=== PATIENT | female | born 1945 | race Caucasian/White ===

== ENCOUNTER 2020-01-31 10:23 | Day surgery (SDC) | payer MEDICARE, BC ==
[2020-01-28 12:42] LABS: BASOPHILS % (AUTO) 1 % (0-1); EOSINOPHILS % (AUTO) 2 % (1-7); LYMPHOCYTES % (AUTO) 24 % (22-44); MEAN CORPUSCULAR HEMOGLOBIN 27.2 pg (27.0-34.8); MEAN PLATELET VOLUME 8.4 fL (7.4-10.4); MONOCYTES % (AUTO) 7 % (2-9); NEUTROPHILS % (AUTO) 67 % (42-75); PLATELET COUNT 317 x10^3/uL (130-400); RED BLOOD COUNT 5.22 x10^6/uL (3.82-5.3); RED CELL DISTRIBUTION WIDTH 14.4 % (9.6-15.2)
[2020-01-28 12:44] LABS: MD NO
[2020-01-28 12:49] LABS: INTERNATIONAL NORMALIZED RATIO 0.98 (0.93-1.1); PROTHROMBIN TIME 10.4 Seconds (9.6-11.5)
[2020-01-28 12:51] LABS: ALANINE AMINOTRANSFERASE 28 U/L (12-78); ALBUMIN 3.8 g/dL (3.4-5.0); ANION GAP 6 mmol/L (5-15); CALCIUM 9.5 mg/dL (8.5-10.1); CHLORIDE 108 mmol/L (98-107); CREATININE 0.82 mg/dL (0.55-1.02)
[2020-01-28 12:53] LABS: ALKALINE PHOSPHATASE 128 U/L (45-117); BILIRUBIN,TOTAL 0.6 mg/dL (0.2-1.0); TOTAL PROTEIN 7.3 g/dL (6.4-8.2)
[~2020-01-31] VITALS: Ht 170.2 cm; Wt 85.0 kg
[~2020-01-31 10:23] MED LIST: GINGER PO; TUMERIC PO; [UNRECOGNIZED DRUG - OTHER] PO; calcium PO; magnesium PO; multivitamin PO; super B complex PO
[2020-01-31] MEDS ORDERED: FENTANYL PF 250 MCG/5ML ONE ×2 (10:51→13:33)
[2020-01-31] MEDS ORDERED: ROCURONIUM 10MG/ML,5ML ONE (10:53)
[2020-01-31] MEDS ORDERED: GLYCOPYRROLATE 0.2MG/1ML, 5ML ONE (10:53)
[2020-01-31] MEDS ORDERED: CEFAZOLIN 1,000 MG ONE (10:53)
[2020-01-31] MEDS ORDERED: DEXAMETHASONE 4 MG/ML, 1ML ONE (10:53)
[2020-01-31] MEDS ORDERED: NEOSTIGMINE 1 MG/ML, 10ML ONE (10:53)
[2020-01-31] MEDS ORDERED: ONDANSETRON 2MG/ML, 2ML ONE (10:53)
[2020-01-31] MEDS ORDERED: PROPOFOL 10 MG/ML, 20ML ONE (10:53)
[2020-01-31 10:58] VITALS: BP 139/88
[2020-01-31] MEDS ORDERED: CEFOTETAN PMX 2GM/50ML 50 ML IVPB ONE (11:00)
[2020-01-31] MEDS ORDERED: FLU VACCINE PER PHARMACY IM ONE (11:00)
[2020-01-31] MEDS ORDERED: LACTATED RINGERS 1,000 ML IV SCH (11:00)
[2020-01-31] MEDS ORDERED: CHLORHEXIDINE 15 ML UDC MM ONE (11:00)
[2020-01-31] MEDS ORDERED: HEPARIN 1,000 UNITS/ML, 10ML ONE (11:54)
[2020-01-31] MEDS ORDERED: BUPIVACAINE/PF 0.25% ONE (11:54)
[2020-01-31] MEDS ORDERED: INDOCYANINE GREEN 25 MG VIAL ONE (11:54)
[2020-01-31] MEDS ORDERED: EPINEPHRINE 1 MG/ML, 1ML ONE (11:54)
[2020-01-31] MEDS ORDERED: morphine SULFATE 10 MG/ML, 1ML IVPush PRN (12:30)
[2020-01-31] MEDS ORDERED: OXYcodone 5 MG/5 ML ORAL.SOL UDC PO PRN (12:30)
[2020-01-31] MEDS ORDERED: PROMETHAZINE 25 MG/ML, 1ML IVPush PRN (12:30)
[2020-01-31] MEDS ORDERED: ACETAMINOPHEN 325 MG TABLET PO PRN (12:30)
[2020-01-31] MEDS ORDERED: hydrALAzine 20 MG/ML, 1ML IV PRN (12:30)
[2020-01-31] MEDS ORDERED: HYDROmorphone 1 MG/ML, 1ML INJ IVPush PRN (12:30)
[2020-01-31] MEDS ORDERED: FENTANYL PF 100 MCG/2ML IV PRN (12:30)
[2020-01-31] MEDS ORDERED: HALOPERIDOL 5 MG/ML IV PRN (12:30)
[2020-01-31] MEDS ORDERED: LABETALOL 5MG/ML, 20ML IV PRN (12:30)
[2020-01-31] MEDS ORDERED: MEPERIDINE/PF 25MG/0.5ML IVPush PRN (12:30)
[2020-01-31] MEDS ORDERED: INDOCYANINE GREEN 25 MG VIAL INJ ONE (12:45)
[2020-01-31] MEDS ORDERED: BUPIVACAINE/PF-EPI 0.25% 1:200K INFIL ONE (12:45)
[2020-01-31] MEDS ORDERED: FENTANYL PF 100 MCG/2ML ONE ×2 (14:21→14:55)
[2020-01-31] MEDS ORDERED: OXYcodone 5 MG/5 ML ORAL.SOL UDC ONE (15:46)
[2020-01-31] MEDS ORDERED: HYDROmorphone 1 MG/ML, 1ML INJ ONE (15:46)
== END 2020-01-31 21:20 | disposition home or self-care (01) ==
LOC: OUT 10:23 → EDSTATUS 13:00 → OUT 21:20
PROVIDERS: ATTEND Obstetrics & Gynecology
DX: C54.1 Malignant neoplasm of endometrium (principal); D25.2 Subserosal leiomyoma of uterus; D25.1 Intramural leiomyoma of uterus; D27.1 Benign neoplasm of left ovary; D27.0 Benign neoplasm of right ovary; N80.3 Endometriosis of pelvic peritoneum; N80.1 Endometriosis of ovary; N80.0 Endometriosis of uterus; N73.6 Female pelvic peritoneal adhesions (postinfective); E89.0 Postprocedural hypothyroidism; E78.5 Hyperlipidemia, unspecified; E66.9 Obesity, unspecified; Z68.30 Body mass index [BMI] 30.0-30.9, adult; Z79.01 Long term (current) use of anticoagulants; Z79.890 Hormone replacement therapy; Z79.899 Other long term (current) drug therapy; Z88.0 Allergy status to penicillin; Z80.3 Family history of malignant neoplasm of breast
CPT/HCPCS: 36415; 38570; 58571; 71046; 80053; 85025; 85610; 85730; 86304; 86850; 86900; 86923; 87635; 88112; 88305; 88307; 88331; 93005; J0171; J0690; J1100; J1644; J2405; J2704; J2710; J3010; J7120